=== PATIENT | female | born 1965 | race Caucasian/White ===

== ENCOUNTER 2020-07-17 11:48 | Inpatient (IN) ==
[2020-07-17] MEDS ORDERED: NS 0.9% 1000 ml BAG 1,000 ML IV ONE (11:54)
[2020-07-17] MEDS ORDERED: fentaNYL 100 mcg/2 ml 50 MCG/ML VIAL IV SLOW PU ONE (11:54)
[2020-07-17] MEDS ORDERED: HYDROmorphone 0.5 MG/0.5 ML SYRINGE IV ONE (12:34)
[2020-07-17 12:45] LABS: ABS Lymphocytes 1.4 10^3/ul (1.0-4.8); ABS Monocytes 0.6 10^3/ul (0-0.8); ABS Neutrophils 14.4 10^3/ul (1.5-7.7); Eosinophil % 0.2 %; Hematocrit 40 % (35-47); Hemoglobin 13.5 g/dL (12.0-16.0); Lymphocyte % 8.3 %; Mean Corpuscular HGB Conc 34 g/dL (31-36); Mean Corpuscular Hemoglobin 32 pg (27-31); Mean Corpuscular Volume 93 fL (80-97); Mean Platelet Volume 7.7 fL (7.4-10.4); Platelet Count 274 10^3/uL (150-450); Red Blood Count 4.29 10^6 /uL (3.70-4.87); Red Cell Distribution Width 13 % (10-15); White Blood Count 16.5 10^3/uL (3.5-10.8)
[2020-07-17 12:59] LABS: Activated Partial Thrombo Time 26.1 seconds (26.0-38.0); INR 1.16 (0.82-1.09)
[2020-07-17 13:14] LABS: ALT 23 U/L (7-52); Albumin/Globulin Ratio 1.8 (1-3); Alkaline Phosphatase 87 U/L (34-104); BUN/Creatinine Ratio 21.7 (8-20); Blood Urea Nitrogen 15 mg/dL (6-24); CO2 Carbon Dioxide 22 mmol/L (22-32); Calcium 8.7 mg/dL (8.6-10.3); Chloride 106 mmol/L (101-111); EGFR African American 106.9 (>60); EGFR Non-African American 88.3 (>60); Globulin 2.2 g/dL (2-4); Glucose 111 mg/dL (70-100); Sodium 138 mmol/L (135-145); Total Protein 6.2 g/dL (6.4-8.9)
[2020-07-17] MEDS ORDERED: Ondansetron 4 mg VIAL 2 MG/ML 2 ml VIAL IV PRN (13:22)
[2020-07-17] MEDS ORDERED: Magnesium Hydroxide LIQ 30 ML UDC PO PRN (13:22)
[2020-07-17 13:31] LABS: Anion Gap 10 mmol/L (2-11)
[2020-07-17 14:33] LABS: Potassium Redraw 4.1 mmol/L (3.5-5.0)
[2020-07-17] MEDS: NS 0.9% 1000 ml BAG 1,000 ML IV SCH (14:47)
[2020-07-17] MEDS: HYDROmorphone 0.5 MG/0.5 ML SYRINGE IV SLOW PU PRN ×3 (14:51→19:56)
[2020-07-17] MEDS ORDERED: Propofol 10 mg/ml 100 ML BTL 100 ML ONE (15:59)
[2020-07-17] MEDS ORDERED: Sodium Citrate/Citric Acid LIQ 15 ML UDC ONE (16:57)
[2020-07-17] MEDS ORDERED: ceFAZolin 2 GM PREMIX 2 GM/50 ML BAG ONE (17:02)
[2020-07-17] MEDS ORDERED: HYDROmorphone 1 MG/1 ML SYRINGE ONE (17:07)
[2020-07-17] MEDS ORDERED: fentaNYL 100 mcg/2 ml 50 MCG/ML VIAL ONE (18:12)
[2020-07-17] MEDS ORDERED: Ketamine HCL 50 mg/ml 10 ml VIAL (500 MG) ONE (18:12)
[2020-07-17] MEDS ORDERED: Midazolam 5 mg/5 ml VIAL 1 mg/ml 5 ml VIAL (5 mg) ONE (18:12)
[2020-07-17] MEDS ORDERED: EPHEDrine (Pressors) 50 MG/ML VIAL ONE (18:13)
[2020-07-17] MEDS ORDERED: Sterile Water for Inj 10 ML ONE ×2 (18:13→18:16)
[2020-07-17] MEDS ORDERED: Phenylephrine 40 mcg/mL 10mL (400mcg) SYRINGE ONE (18:16)
[2020-07-17] MEDS ORDERED: Phenylephrine IV 10 MG/ML 1 ml VIAL ONE (18:18)
[2020-07-17] MEDS ORDERED: Bupivacaine 0.5% SDV PF 30ML VIAL ONE (18:23)
[2020-07-17] MEDS ORDERED: Propofol 10 MG/ML 20 ML BTL ONE (18:31)
[2020-07-18] MEDS: HYDROmorphone 0.5 MG/0.5 ML SYRINGE IV SLOW PU PRN ×3 (00:24→23:32)
[2020-07-18] MEDS: NS 0.9% 1000 ml BAG 1,000 ML IV SCH ×2 (04:53→20:02)
[2020-07-18 06:50] LABS: ABS Basophils 0.1 10^3/ul (0-0.2); ABS Eosinophils 0.1 10^3/ul (0-0.6); ABS Monocytes 0.6 10^3/ul (0-0.8); ABS Neutrophils 7.5 10^3/ul (1.5-7.7); Eosinophil % 0.8 %; Hematocrit 35 % (35-47); Hemoglobin 12.2 g/dL (12.0-16.0); Lymphocyte % 11.1 %; Mean Corpuscular HGB Conc 35 g/dL (31-36); Mean Corpuscular Hemoglobin 32 pg (27-31); Mean Corpuscular Volume 92 fL (80-97); Mean Platelet Volume 8.3 fL (7.4-10.4); Platelet Count 208 10^3/uL (150-450); Red Blood Count 3.78 10^6 /uL (3.70-4.87); Red Cell Distribution Width 12 % (10-15); White Blood Count 9.3 10^3/uL (3.5-10.8)
[2020-07-18] MEDS ORDERED: Midazolam 2 mg/2 ml VIAL 1 mg/ml 2 ml VIAL (2 mg) ONE (06:58)
[2020-07-18] MEDS ORDERED: fentaNYL 100 mcg/2 ml 50 MCG/ML VIAL ONE (06:58)
[2020-07-18] MEDS ORDERED: ROPIVACAINE 5 MG/ML 30 ML BTL (0.5%) ONE ×2 (07:10→07:29)
[2020-07-18] MEDS ORDERED: Bupivacaine 0.25% SDV 30 ML ONE (07:22)
[2020-07-18] MEDS ORDERED: ceFAZolin 2 GM PREMIX 2 GM/50 ML BAG ONE (07:30)
[2020-07-18 07:46] LABS: BUN/Creatinine Ratio 21.7 (8-20); Calcium 8.6 mg/dL (8.6-10.3); EGFR African American 125.6 (>60); EGFR Non-African American 103.8 (>60); Potassium 3.7 mmol/L (3.5-5.0)
[2020-07-18] MEDS ORDERED: Lidocaine 2% PF 5 ML VIAL ONE (07:49)
[2020-07-18] MEDS ORDERED: Propofol 10 MG/ML 20 ML BTL ONE ×2 (07:49→08:42)
[2020-07-18] MEDS ORDERED: Rocuronium 50 mg VIAL 10 mg/ml 5 ml VIAL (50 mg) ONE ×2 (07:50→08:53)
[2020-07-18] MEDS ORDERED: Dexamethasone IV 4 MG/ML VIAL 1 ml VIAL ONE (08:04)
[2020-07-18] MEDS ORDERED: Ondansetron 4 mg VIAL 2 MG/ML 2 ml VIAL ONE (08:04)
[2020-07-18] MEDS ORDERED: HYDROmorphone 1 MG/1 ML SYRINGE ONE ×2 (08:19→10:35)
[2020-07-18] MEDS ORDERED: Naloxone 0.4 mg VIAL 0.4 mg/ml 1 ml VIAL IV PRN (08:47)
[2020-07-18] MEDS ORDERED: HYDROmorphone 1 MG/1 ML SYRINGE IV PRN (08:47)
[2020-07-18] MEDS ORDERED: DiMENhydriNATE IV 50 mg/ml 1 ml VIAL IV PUSH PRN (08:47)
[2020-07-18] MEDS ORDERED: Lidocaine 1% w EPI 1:200,000 SDV 30 ML VIAL ONE (09:28)
[2020-07-18] MEDS ORDERED: oxyCODONE/Acetamin 5/325 mg TAB PO ONE ×2 (13:15)
[2020-07-18] MEDS ORDERED: oxyCODONE/Acetamin 5/325 mg TAB PO PRN (13:18)
[2020-07-18] MEDS: ceFAZolin 1 GM ADVAN 1 GM in NS 0.9% 50 ML 50 ML IVPB SCH ×2 (16:01→23:33)
[2020-07-18] MEDS: oxyCODONE/Acetamin 5/325 mg TAB PO PRN (18:34)
[2020-07-18 18:45] LABS: Urine Appearance Cloudy; Urine Bilirubin Negative (Negative); Urine Blood 1+ (Negative); Urine Color Yellow; Urine Glucose Negative (Negative); Urine Ketones Negative (Negative); Urine Nitrite Negative (Negative); Urine Protein Negative (Negative); Urine Specific Gravity 1.011 (1.010-1.030); Urine Urobilinogen Negative (Negative)
[2020-07-18 19:09] LABS: Urine Bacteria Absent (Absent); Urine Red Blood Cell Absent (Absent); Urine Squamous Epithelial Cell Present (Absent); Urine White Blood Cell 1+(6-10/hpf) (Absent)
[2020-07-19] MEDS: oxyCODONE/Acetamin 5/325 mg TAB PO PRN ×3 (01:36→13:23)
[2020-07-19 05:11] LABS: ABS Eosinophils 0.1 10^3/ul (0-0.6); ABS Lymphocytes 1.4 10^3/ul (1.0-4.8); ABS Monocytes 0.8 10^3/ul (0-0.8); ABS Neutrophils 6.3 10^3/ul (1.5-7.7); Eosinophil % 0.9 %; Hematocrit 29 % (35-47); Hemoglobin 9.8 g/dL (12.0-16.0); Lymphocyte % 16.5 %; Mean Corpuscular HGB Conc 34 g/dL (31-36); Mean Corpuscular Hemoglobin 32 pg (27-31); Mean Corpuscular Volume 94 fL (80-97); Mean Platelet Volume 7.5 fL (7.4-10.4); Platelet Count 162 10^3/uL (150-450); Red Blood Count 3.06 10^6 /uL (3.70-4.87); Red Cell Distribution Width 12 % (10-15); White Blood Count 8.6 10^3/uL (3.5-10.8)
[2020-07-19 05:28] LABS: Calcium 8.1 mg/dL (8.6-10.3); EGFR African American 97.1 (>60); EGFR Non-African American 80.2 (>60); Potassium 3.9 mmol/L (3.5-5.0)
[2020-07-19] MEDS: NS 0.9% 1000 ml BAG 1,000 ML IV SCH (07:40)
[2020-07-19] MEDS: ceFAZolin 1 GM ADVAN 1 GM in NS 0.9% 50 ML 50 ML IVPB SCH (07:53)
[2020-07-19 08:03] VITALS: BP 106/57
[2020-07-19] MEDS ORDERED: Enoxaparin 40 MG/0.4 ML SYR SUBCUT SCH (09:00)
== END 2020-07-19 13:45 | disposition home health service (06) | DRG 308 ==
LOC: ED 11:48 → SSU 12:47
PROVIDERS: ADMIT Hospitalist; ATTEND Internal Medicine